=== PATIENT | female | born 1940 | race Caucasian/White ===

== ENCOUNTER 2016-02-26 06:44 | Observation (INO) | payer OTHER, MEDICARE ==
[2016-02-24 11:19] LABS: ANION GAP 11 mEq/L (8-16); CALCIUM 10.5 mg/dL (8.5-10.4); CARBON DIOXIDE 29 mEq/l (22-31); CHLORIDE 102 mEq/L (97-110); CREATININE 0.8 mg/dL (0.6-1.0); GLOMERULAR FILTRATION RATE > 60; GLUCOSE 98 mg/dL (70-100); POTASSIUM 4.2 mEq/L (3.5-5.2); SODIUM 142 mEq/L (134-144)
--- NOTE | 2016-02-24 17:41 | GHP ---
[f rep st] HISTORY AND PHYSICAL DATE OF ADMISSION: 02/26/2016 This is for upcoming surgery, date of admission 02/26/2016. HISTORY OF PRESENT ILLNESS: The patient comes to our office to follow up on her recent right breast excisional biopsy as well as talk about her elevated calcium. She has had elevated calcium a couple times over the past 6 months as well as a recent nuclear medicine scan done at [facility] which showed a suspect left midgland parathyroid adenoma. Her calcium was recently 11.8. ALLERGIES: Sulfa. PAST SURGICAL HISTORY: Tonsillectomy/adenoidectomy, cataract surgery, recent right breast skin biops y, knee replacement. MEDICATIONS: 1. Advair. 2. ProAir. 3. Spiriva. 4. Celebrex. 5. Triamterene/hydrochlorothiazide. 6. Gemfibrozil. 7. Delzicol. PAST MEDICAL HISTORY: Asthma, hyperlipidemia, COPD, history of breast cancer, hypercalcemia, ulcerat vikas colitis. SOCIAL HISTORY: Patient is , never a smoker according to the chart. REVIEW OF SYSTEMS: She had a negative 10-point review of systems. PHYSICAL EXAM: GENERAL: Patient is a pleasant female in no apparent distress who is using oxygen. HEAD AND NECK: Normocephalic and atraumatic. CHEST: CTA bilaterally. HEART: Regular rhythm and ra te. BREASTS: Exam demonstrates a right breast incision that is well healed. ABDOMEN: Soft and non tender. EXTREMITIES: No lower extremity edema. DIAGNOSTIC STUDIES: Laboratory studies and the recent nuclear medicine scan were reviewed. IMPRESSION: Hypercalcemia with possible parathyroid adenoma, left side. RECOMMENDATION: Parathyroidectomy was discussed with the patient in detail including the risks of ne rve injury resulting in hoarseness, dysphagia, injury causing neck hematoma requiring more surgery, i nfection were all discussed with the patient in detail and the patient elected to proceed with [facility] surgery for February 26, 2016. The patient has received clearance from jess Rios pulmonologradha de la garza in [place]. /[id number]/MODL
[2016-02-26] MEDS ORDERED: LIDOCAINE 1% 5 ML SDV ONE (07:05)
[2016-02-26] MEDS ORDERED: LR 1,000 ML IV ONE (07:27)
[2016-02-26] MEDS ORDERED: LIDOCAINE 1% 5 ML SDV ID PRN (07:27)
[2016-02-26] MEDS ORDERED: BUPIVACAINE/EPI 0.5% 30 ML SDV ONE (07:51)
[2016-02-26] MEDS ORDERED: THROMBIN (RECOMBINANT) 5,000 UNIT VIAL TP ONE (07:51)
[2016-02-26] MEDS ORDERED: LIDOCAINE 2% 100 MG/5 ML SYR IVP ONE (07:58)
[2016-02-26] MEDS ORDERED: fentaNYL 250 MCG/5 ML INJ ONE (07:58)
[2016-02-26] MEDS ORDERED: ROCURONIUM 50 MG/5 ML VIAL ONE (07:58)
[2016-02-26] MEDS ORDERED: DEXAMETHASONE 4 MG/ML VIAL ONE (07:58)
[2016-02-26] MEDS ORDERED: ONDANSETRON 4 MG/2 ML VIAL ONE (07:58)
[2016-02-26] MEDS ORDERED: PROPOFOL 200 MG/20 ML VIAL ONE (07:59)
[2016-02-26] MEDS ORDERED: ceFAZolin 2 GM/DEXTROSE 100 ML IV ONE (08:00)
[2016-02-26] MEDS ORDERED: ACETAMINOPHEN 325 MG TAB PO PRN (08:31)
[2016-02-26] MEDS ORDERED: ONDANSETRON 4 MG/2 ML VIAL IVP PRN (08:31)
[2016-02-26] MEDS ORDERED: HYDROCODONE/APAP 5/325 TAB PO PRN (08:31)
[2016-02-26] MEDS ORDERED: OXYCODONE/APAP 5/325 TAB PO PRN (08:31)
[2016-02-26] MEDS ORDERED: MIDAZOLAM 2 MG/2 ML VIAL ONE (08:33)
[2016-02-26] MEDS ORDERED: ALBUTEROL 60 PUFFS/8 GM MDI IH PRN (08:33)
[2016-02-26] MEDS ORDERED: ALBUTEROL 3 ML DEYVIAL IH PRN (08:33)
[2016-02-26] MEDS ORDERED: D5W 1/2 NS W/ 20 KCl/L 1,000 ML IV SCH (08:45)
[2016-02-26] MEDS ORDERED: NON-FORMULARY NEW DRUG (Meloxicam [Mobic 15 Mg] 15 MG) PO SCH (09:00)
[2016-02-26] MEDS ORDERED: SUGAMMADEX SODIUM 200 MG/2 ML VIAL IVP ONE (09:52)
--- NOTE | 2016-02-26 10:07 | POSTOPPROG ---
Post Op Note Date of Operation: 02/26/16 Surgeon: Hans Chew Coil Winder Hand: Cristian Penaloza Anesthesiologist: Dr monet Anesthesia: GET(General Endotracheal) Pre-op Diagnosis: hyperparathyroidism/hypercalcemia Post-op Diagnosis: same Indication: hypercalcemia Procedure: parathyroidectomy Findings: left parathyroid adenoma Inf/Abcess present in the surg proc area at time of surgery?: No Depth: Deep Incisional (Fascial) EBL: Minimal Specimen(s): left parathyroid pole
[2016-02-26] MEDS ORDERED: fentaNYL 100 MCG/2 ML INJ ONE (10:38)
[2016-02-26] MEDS: FLUTICASONE/SALMETER 500/50MCG DISKUS IH SCH ×2 (12:04→22:12)
[2016-02-26] MEDS: Umeclidinium Brm/Vilanterol Tr [Anoro Ellipta 62.5-25 Mcg Inh] IH SCH (12:05)
[2016-02-26] MEDS: TRIAMTERENE/HCTZ 75/50 1 EACH TAB PO SCH (12:26)
[2016-02-26] MEDS: GEMFIBROZIL 600 MG TAB PO SCH ×2 (12:26→21:00)
[2016-02-26] MEDS: Mesalamine [Lialda] 4.8 GM PO SCH (12:26)
[2016-02-26] MEDS: HYDROmorphONE/DILAUDID 1 MG/ML SYR IVP PRN ×2 (12:48→16:21)
[2016-02-26] MEDS ORDERED: ASPIRIN 81 MG CHEWABLE TAB PO SCH (21:00)
[2016-02-27 08:23] VITALS: BP 106/75; PULSE 76; RESP 20; TEMP 98.7; O2SAT 94
--- NOTE | 2016-02-27 08:51 | SOAPPROG ---
SOAP Progress Note Assessment/Plan: Assessment: 75yo female s/p parathyroidectomy PE awake alert neck moderate ecchymosis, no significant edema chest CTA B/L Plan: d/c home, seen by Dr Samayoa 02/27/16 08:50 Objective: Vital Signs Temp Pulse Resp BP Pulse Ox 37.1 C 76 20 106/75 94 02/27/16 08:22 02/27/16 08:22 02/27/16 08:22 02/27/16 08:22 02/27/16 08:22 Laboratory Results 02/24/16 10:26 02/26/16 02/27/16 02/28/16 05:59 05:59 05:59 Intake Total 1810 Output Total 1200 Balance 610 ICD10 Worksheet Patient Problems: Problems Problem Status Diagnosed Hyperparathyroidism Acute - ICD10 Problem Qualifiers (1) Hyperparathyroidism
[2016-02-27] MEDS ORDERED: Meloxicam [Mobic 15 Mg] 15 MG PO SCH (09:00)
[2016-02-27] MEDS: FLUTICASONE/SALMETER 500/50MCG DISKUS IH SCH (09:53)
[2016-02-27] MEDS: GEMFIBROZIL 600 MG TAB PO SCH (09:53)
[2016-02-27] MEDS: TRIAMTERENE/HCTZ 75/50 1 EACH TAB PO SCH (09:54)
[2016-02-27] MEDS: Mesalamine [Lialda] 4.8 GM PO SCH (09:54)
[2016-02-27] MEDS: Umeclidinium Brm/Vilanterol Tr [Anoro Ellipta 62.5-25 Mcg Inh] IH SCH (09:54)
--- NOTE | 2016-02-28 17:43 | GOP ---
[f rep st] OPERATIVE REPORT DATE OF OPERATION: 02/26/2016 SURGEON: Hans Chew MD RIVER TESTER: TREVON Foy ANESTHESIOLOGIST: Dr. Seaman PREOPERATIVE DIAGNOSIS: Hyperparathyroidism. POSTOPERATIVE DIAGNOSIS: Hyperparathyroidism. PROCEDURE PERFORMED: Parathyroid exploration with removal of parathyroid adenoma. FINDINGS: Patient was found to have a large multilobulated parathyroid adenoma at the upper left brad e position. She had a PTH which dropped from 99 down to 37 after 10 minutes. She had several other normal parathyroid glands visualized. DESCRIPTION OF PROCEDURE: Patient taken to the operating room, where she received satisfactory gener al endotracheal anesthesia Dr. Seaman, placed in the supine position, and prepped and draped in the usual sterile fashion. She has a very short neck. A transverse cervical incision was made and carried through the platysma. Continual platysmal flaps were developed to the thyroid cartilage and to the sternal notch. Strap muscles were in th e midline and the neck was explored. The thyroid was quite low, almost behind the manubrium making e xposure and dissection somewhat difficult. Dissection began on the patient's left side. The lower parathyroid was identified. It appeared to b e normal. The top of the parathyroid was unclear. Examination was done on the right side where 2 pa rathyroid glands were identified, but both were small in size. Turning back to the left side, further dissection deeper above the recurrent laryngeal nerve identifi ed a multilobulated adenoma, which was dissected free. Hemostasis was obtained with mini clips. The entire nodule was removed and sent for frozen section and confirmed as consistent with a parathyroid adenoma. Hemostasis was assured. The wound was irrigated. Strap muscles were approximated in the midline with 3-0 Vicryl, as was the platysma and subcutaneous tissue. Layers were infiltrated with Marcaine and the skin was closed with 4-0 Monocryl subcuticular stitch. The PTH value was demonstrated to drop significantly, and the ruddy ent was taken to the recovery room in good condition. There were no complications. /[id number]/MODL
== END 2016-02-27 09:58 | disposition home or self-care (01) ==
LOC: F3E 06:44
PROVIDERS: ADMIT Surgery; ATTEND Surgery
PROC: 0GBR0ZZ Excision of Parathyroid Gland, Open Approach (ICD-10-PCS; principal; 2016-02-26 08:30)
DX: D35.1 Benign neoplasm of parathyroid gland (principal); E83.52 Hypercalcemia; Z96.659 Presence of unspecified artificial knee joint; J45.909 Unspecified asthma, uncomplicated; E78.5 Hyperlipidemia, unspecified; J44.9 Chronic obstructive pulmonary disease, unspecified; K51.90 Ulcerative colitis, unspecified, without complications
CPT/HCPCS: 60500; J0690; J1100; J1170; J2001; J2250; J2405; J2704; J3010

== ENCOUNTER → 2017-02-17 | Outpatient (CLI) | payer OTHER, MEDICARE | LOC: FIMAGING 11:56 | PROVIDERS: ATTEND Internal Medicine Endocrinology, Diabetes & Metabolism | DX: Z12.31 Encounter for screening mammogram for malignant neoplasm of breast (principal); Z85.3 Personal history of malignant neoplasm of breast | CPT/HCPCS: G0202 ==

== ENCOUNTER → 2017-02-21 | Outpatient (CLI) | payer OTHER, MEDICARE | LOC: FIMAGING 11:20 | PROVIDERS: ATTEND Family Medicine | DX: Z13.820 Encounter for screening for osteoporosis (principal); M81.0 Age-related osteoporosis without current pathological fracture ==

== ENCOUNTER → 2017-11-29 | Outpatient (CLI) | payer OTHER, MEDICARE | LOC: FIMAGING 14:36 | PROVIDERS: ATTEND Internal Medicine Endocrinology, Diabetes & Metabolism | DX: J44.9 Chronic obstructive pulmonary disease, unspecified (principal); Z99.81 Dependence on supplemental oxygen ==

== ENCOUNTER 2018-02-22 20:29 | Inpatient (IN) | payer OTHER, MEDICARE ==
--- NOTE | 2018-02-22 20:36 | EDPHY ---
H & P Time Seen by Provider: 02/22/18 20:29 HPI/ROS: CHIEF COMPLAINT: Chest pain HISTORY OF PRESENT ILLNESS: Patient is a 77-year-old female who presents emergency department chest pain starting at 5:30 p.m.. She describes a bandlike pain across her chest. It started to radiate to her back and shoulder blades. She described as moderate to severe. EMS arrived. The patient was treated with aspirin and nitroglycerin. That greatly improved her symptoms. She now feels much better. She reports her pain as 2/10. She has no significant shortness of breath. No nausea or vomiting. No diaphoresis. Patient has had no previous heart attack. REVIEW OF SYSTEMS: 10 systems were reveiwed and are negative with the exception of the elements mentioned in the history of present illness. Past Medical/Surgical History: Includes COPD, hyperlipidemia, asthma Past surgical history: Includes knee replacement, thyroid resection Social history: Patient has a previous history of smoking. She does not currently smoke now. Smoking Status: Former smoker Physical Exam: Vitals noted GENERAL: Well-appearing, in no acute distress, alert. HEENT: Eyes normal to inspection, normal pharynx, no signs of dehydration. NECK: Normal, supple. Thyroid surgical scar. RESPIRATORY: Clear to auscultation bilaterally, no rales, rhonchi or wheezing. CVS: Regular rate and rhythm, no rubs, murmurs, or gallops. Chest wall: No tenderness palpation ABDOMEN: Soft, nontender, nondistended, no organomegaly. BACK: Normal to inspection, no CVA tenderness. SKIN: Normal color, no rash, warm, dry. No pallor. EXTREMITIES: No pedal edema, no calf tenderness, no Homans sign or cords, no joint swelling. NEURO/PSYCH: Alert and oriented, normal mood and affect, normal motor sensory exam. No obvious cranial nerve deficit. Constitutional: Initial Vital Signs Temperature (C) 36.6 C 02/22/18 20:29 Heart Rate 85 02/22/18 20:29 Respiratory Rate 19 02/22/18 20:29 Blood Pressure 136/61 H 02/22/18 20:29 O2 Sat (%) 98 02/22/18 20:29 O2 Delivery Mode Nasal Cannula O2 (L/minute) 4 Allergies/Adverse Reactions: Sulfa (Sulfonamide Antibiotics) Allergy (Verified 02/26/16 23:22) Rash Home Medications: Medication Instructions Recorded Albuterol [Proventil Inhaler HFA 1 puffs IH DAILY PRN 02/19/16 (*)] Albuterol [Proventil Neb] 3 ml IH DAILY PRN 02/19/16 Aspirin [Aspirin 81mg (*)] 81 mg PO HS 02/19/16 Fluticasone/Salmeter 500/50Mcg 1 puffs IH BID 02/19/16 [Advair 500/50 (*)] Gemfibrozil [Lopid 600 MG (*)] 600 mg PO BID 02/19/16 Meloxicam [Mobic 15 mg] 15 mg PO DAILY 02/19/16 Mesalamine [Lialda] 4.8 gm PO DAILY 02/19/16 Umeclidinium Brm/Vilanterol Tr 1 each IH DAILY 02/19/16 [Anoro Ellipta 62.5-25 Mcg INH] Advair 500/50 (*) 02/22/18 Gabapentin 02/22/18 Medical Decision Making - Diagnostics Imaging Results: Imaging Impressions Chest X-Ray 02/22/18 20:31 Impression: Bibasilar atelectasis; otherwise negative. ED Course/Re-evaluation: In the emergency department I met EMS on arrival. I took report from the reconciliation analyst. The patient has been given fentanyl, aspirin and nitro. I reviewed the EKGs from EMS. Patient has noted ST elevation in V3 through V6 as well as III. On arrival patient states her chest pain was well controlled. Cardiac alert was called on EMS arrival @ 2028. STAT Pads were placed on the patient. Laboratory studies, EKG and chest x-ray were ordered. EKG: Sinus rhythm at 85. Normal axis. Normal intervals. ST elevation in I, avL, V2-V6. ST depression III. I discussed the findings with the patient. I discussed the plan. I answered all her questions. Chest x-ray: I reviewed the images at bedside. The patient has a normal sized mediastinum. 2100: The patient again developed some mild chest pain. Her blood pressure was stable. She is given sublingual nitroglycerin. Differential Diagnosis: My differential includes but is not limited to acute ST-elevation DC, ACS, pericarditis, myocarditis, pulmonary embolus, dissection, aneurysm Critical Care Time: The patient required 15 min of critical care time. This was exclusive of any unbundled procedure. This was due the patient's chest pain, abnormal EKG, consultation with Cardiology and admission. - Data Points Laboratory Results: Laboratory Results 02/22/18 20:30 02/22/18 02/22/18 02/22/18 20:30 20:30 20:30 WBC 11.79 10^3/uL H 10^3/uL (3.80-9.50) RBC 4.49 10^6/uL 10^6/uL (4.18-5.33) Hgb 13.3 g/dL g/dL (12.6-16.3) Hct 41.8 % % (38.0-47.0) MCV 93.1 fL fL (81.5-99.8) MCH 29.6 pg pg (27.9-34.1) MCHC 31.8 g/dL L g/dL (32.4-36.7) RDW 13.2 % % (11.5-15.2) Plt Count 190 10^3/uL 10^3/uL (150-400) MPV 11.1 fL fL (8.7-11.7) Neut % (Auto) 77.4 % H % (39.3-74.2) Lymph % (Auto) 12.1 % L % (15.0-45.0) [place] % (Auto) 8.8 % % (4.5-13.0) Eos % (Auto) 0.0 % L % (0.6-7.6) Baso % (Auto) 1.2 % % (0.3-1.7) Nucleat RBC Rel Count 0.0 % % (0.0-0.2) Absolute Neuts (auto) 9.12 10^3/uL H 10^3/uL (1.70-6.50) Absolute Lymphs (auto) 1.43 10^3/uL 10^3/uL (1.00-3.00) Absolute Monos (auto) 1.04 10^3/uL H 10^3/uL (0.30-0.80) Absolute Eos (auto) 0.00 10^3/uL L 10^3/uL (0.03-0.40) Absolute Basos (auto) 0.14 10^3/uL H 10^3/uL (0.02-0.10) Absolute Nucleated RBC 0.00 10^3/uL 10^3/uL (0-0.01) Immature Gran % 0.5 % % (0.0-1.1) Immature Gran # 0.06 10^3/uL 10^3/uL (0.00-0.10) PT 13.0 SEC SEC (12.0-15.0) INR 0.96 (0.83-1.16) APTT 25.0 SEC SEC (23.0-38.0) Sodium Pending Potassium Pending Chloride Pending Carbon Dioxide Pending Anion Gap Pending BUN Pending Creatinine Pending Estimated GFR Pending Glucose Pending Calcium Pending Total Bilirubin Pending Conjugated Bilirubin Pending Unconjugated Bilirubin Pending AST Pending ALT Pending Alkaline Phosphatase Pending Total Protein Pending Albumin Pending Lipase Pending Departure - Departure Disposition: [facility] Inpatient Acute Clinical Impression: ST elevation DC (STEMI) Qualifiers: Involved coronary artery: LAD coronary artery Qualified Code(s): I21.02 - ST elevation (STEMI) myocardial infarction involving left anterior descending coronary artery Condition: Good Referrals: Patient,NotPresent [Primary Care Provider] - As per Instructions
[2018-02-22 20:45] LABS: PLATELET COUNT 190 10^3/uL (150-400)
[2018-02-22 20:54] LABS: INR 0.96 (0.83-1.16)
[2018-02-22] MEDS ORDERED: fentaNYL 100 MCG/2 ML INJ ONE (20:56)
[2018-02-22] MEDS ORDERED: LIDOCAINE 1% 300 MG/30 ML SDV ONE (20:56)
[2018-02-22] MEDS ORDERED: IOPAMIDOL (ISOVUE-370) 150 ML BTL IV ONE ×2 (20:56→21:42)
[2018-02-22] MEDS ORDERED: MIDAZOLAM 2 MG/2 ML VIAL ONE (20:56)
[2018-02-22] MEDS ORDERED: NITROGLYCERIN 0.4 MG BTL SL ONE ×2 (20:58→20:59)
[2018-02-22] MEDS ORDERED: ATROPINE SULFATE 1 MG/10 ML SYR ONE (21:20)
[2018-02-22] MEDS ORDERED: EPINEPHrine 1 MG/10 ML SYR IVP ONE (21:20)
[2018-02-22] MEDS ORDERED: BIVALIRUDIN 250 MG/5 ML VIAL IV ONE (21:20)
[2018-02-22] MEDS ORDERED: NITROGLYCERIN 1,500 MCG/15 ML VIAL MISC ONE (21:57)
--- NOTE | 2018-02-22 21:57 | GHP ---
DATE OF TRANSFER: 02/22/2018 CARDIAC ALERT NOTE/ADMISSION NOTE: TIME: 9 p.m. HISTORY OF PRESENT ILLNESS: On-call tonight by the emergency department for a cardiac alert. Scotty de la garza is 77 years old. She has no prior cardiovascular history. She has longstanding ulcerative colitis , COPD related to longstanding tobacco abuse, who at 5 o'clock developed the acute onset of substerna l chest pressure radiating to her back. Pain increased in severity. She activated 9--. On arriva l by the paramedics, she was found to have a [address]-elevation in her anterolateral leads, and she wa s brought to the emergency department. She was having ongoing 3/10 to 4/10 discomfort, mostly radiat ing to her back on my arrival. She denied shortness of breath. She has had no PND, orthopnea. She has had no palpitations, syncope, or near syncope. Patient has had no hematemesis or melena. She heredia s otherwise been in relatively good health. PAST MEDICAL HISTORY: Significant for ulcerative colitis, COPD. CURRENT MEDICATIONS: Include gabapentin, Advair, mesalamine, meloxicam, Lopid, aspirin, albuterol. RISKS FOR HEART DISEASE: Include hyperlipidemia. GENERAL REVIEW OF SYSTEMS: Negative for fever, chills. She has had mild nausea with this. She has had no abdominal pain. She denies hematemesis, melena, or hemoptysis. She has had no dysuria. She has had no bruising or bleeding. She has had no rashes. Her shortness of breath has been stable on nebulizers. PHYSICAL EXAMINATION: VITAL SIGNS: On my arrival, blood pressure was 120/80. Her heart rate was 82 . GENERAL: This was a cushingoid female resting flat in bed. NECK: She had no JVP. CHEST: Decre ased breath sounds with occasional rhonchi, cleared with coughing. CARDIAC: Revealed a 3/6 systolic murmur along the right sternal border. She had no palpable lift. She had a regular rate and rhythm . She had an S4. ABDOMEN: Distended with good bowel sounds. EXTREMITIES: Free of edema. She had +2 femoral pulses, +2 radial pulses that were equal. She had dorsalis pedis pulses +1 bilaterally p alpable. SKIN: She had no rash. NEUROLOGIC: She was alert and oriented with normal mood and affec t. DATABASE: EKG showed sinus rhythm with acute anterolateral ST elevation. LABORATORY DATA: 1. Significant for a white count 11.79. Her hemoglobin was 13.3. Her crit is 41. Her serum sodium was 139 with a BUN of 25. Her creatinine is 0.8. Her initial troponin is 0.12. 2. AST is 31, ALT is 28. IMPRESSION: 77-year-old female currently hemodynamically stable with anterolateral ST elevation and chest pain syndrome consistent with acute myocardial infarction. Risks and benefits of cardiac sangeeta terization as an initial strategy with the potential intervention were discussed including potential need of bypass surgery. This was discussed with her and her . Will proceed. She has known a llergies to sulfa, which we will be mindful of. At this point, she is hemodynamically stable, Killip class 1, and should do well. Questions were answered with her and her family. Broad differential d iagnosis if need be post procedure. With systolic murmur, will evaluate the aortic valve and mitral valve at the time of the procedure. Considerations for echocardiography postprocedure. /[id number]/MODL
[2018-02-22] MEDS ORDERED: METOPROLOL TARTRATE 5 MG/5 ML INJ ONE (21:59)
[2018-02-22] MEDS ORDERED: CLOPIDOGREL BISULFATE 75 MG TAB ONE (22:09)
[2018-02-22] MEDS ORDERED: TEMAZEPAM 15 MG CAP PO PRN (22:11)
[2018-02-22] MEDS ORDERED: ONDANSETRON 4 MG/2 ML VIAL IVP PRN (22:11)
[2018-02-22] MEDS ORDERED: ATROPINE SULFATE 1 MG/10 ML SYR IVP PRN (22:11)
[2018-02-22] MEDS ORDERED: LORazepam 2 MG/ML INJ IVP PRN (22:11)
[2018-02-22] MEDS ORDERED: EPLERENONE 25 MG TAB PO SCH (22:15)
[2018-02-22] MEDS ORDERED: LISINOPRIL 5 MG TAB PO SCH (22:15)
[2018-02-22] MEDS ORDERED: FAMOTIDINE 20 MG/NACL/50 ML BAG IV ONE (22:30)
--- NOTE | 2018-02-22 23:11 | PDMN ---
Medical Necessity Medical necessity: Pt meets IP criteria as of 02/22/2018 per and ADAM M-230 ( Myocardial Infarction); est los > 2mn for ongoing tx and management of STEMI
[2018-02-23] MEDS ORDERED: CALCIUM CARBONATE 500 MG CHEWABLE TAB PO PRN (00:30)
[2018-02-23] MEDS ORDERED: ALBUTEROL 3 ML DEYVIAL IH PRN (00:30)
[2018-02-23] MEDS ORDERED: ALBUTEROL 60 PUFFS/8 GM MDI IH PRN (00:30)
[2018-02-23 06:00] LABS: PLATELET COUNT 168 10^3/uL (150-400)
[2018-02-23 06:39] LABS: CREATINE KINASE 1177 IU/L (0-156)
--- NOTE | 2018-02-23 07:34 | PDCARPN ---
Cardiology Progress Note Chief Complaint: CP Assessment/Plan: Assessment: STEMI s/p PCI Plan: 02/23/18 07:33 doing well BP low--hold BP meds OOB check eco continue plavix/ASA Subjective: stable Reviewed/Discussed With: multidisciplinary team Time Spent with Patient: greater than 25 minutes Time Spent with Patient: Greater than 25 minutes spent on this patients care, greater than 50% of time spent counseling, educating, and coordinating care regarding the above mentioned plan. Objective: Vital Signs (8 Hrs) Temp Pulse Resp BP Pulse Ox 02/23/18 06:00 70 21 H 87/56 L 98 02/23/18 05:30 36.9 C 70 21 H 94/51 L 96 02/23/18 04:00 69 22 H 92/53 L 94 02/23/18 03:00 67 17 96/56 L 93 02/23/18 02:30 64 21 H 94/50 L 98 02/23/18 02:00 64 21 H 93/64 L 98 02/23/18 01:45 64 21 H 92/54 L 98 02/23/18 01:20 66 21 H 92/54 L 95 02/23/18 01:15 66 21 H 96/57 L 95 02/23/18 01:10 66 21 H 87/62 L 95 02/23/18 01:05 66 21 H 79/55 L 95 02/23/18 01:00 65 21 H 97/61 L 96 02/23/18 00:15 66 24 H 102/62 96 02/23/18 00:00 65 19 107/93 H 98 02/22/18 23:54 104/51 L 02/22/18 23:45 64 20 104/51 L 100 Intake/Output (24 Hrs) 02/22/18 02/23/18 02/24/18 05:59 05:59 05:59 Intake Total 900 Output Total 500 Balance 400 Intake: Oral (ml) 100 IV Intake (ml) 800 Output: Urine (ml) 500 Bedpan 500 Other: Weight 82.5 kg Number of Voids Bedpan 3 Toilet 1 Result Diagrams: 02/23/18 05:36 02/23/18 05:36 Cardiac Labs: Cardiac Lab Results (72 Hrs) 02/23/18 05:36 CK-MB (CK-2) Fraction 140.00 H Troponin I 19.800 H - Physical Exam Constitutional: no apparent distress Eyes: PERRL Ears, Nose, Mouth, Throat: moist mucous membranes Cardiovascular: regular rate and rhythm Peripheral Pulses: 1+: femoral (R), femoral (L) Respiratory: clear to auscultate bilat Gastrointestinal: normoactive bowel sounds Genitourinary: no suprapubic tenderness Skin: no rashes Musculoskeletal: no muscular tenderness Neurologic: AAOx3 Psychiatric: cooperative ICD10 Worksheet Patient Problems: Problems Problem Status Onset ST elevation SC (STEMI) Acute Hyperparathyroidism Acute
--- NOTE | 2018-02-23 07:49 | CPIP ---
DATE OF PROCEDURE: 02/22/2018 INDICATIONS: Acute anterior wall myocardial infarction. PROCEDURE: 1. Left heart catheterization. 2. Coronary and ventricular angiography. 3. Percutaneous coronary intervention and stenting of the apical left anterior descending artery. PROCEDURE IN DETAIL: After obtaining informed consent in the emergency department, the patient was b rought emergently to the cardiac quality assurance/r&d lab technician. The right groin was sterilely prepped and draped and infi ltrated with 2% xylocaine. A 6-Malagasy sheath was inserted in the right femoral artery. Using a 6-Fr ench JL4 catheter, the left main coronary artery was selectively intubated. Coronary angiograms were performed. Using a 6-Malagasy JR4 catheter, the right coronary artery was selectively intubated. Cor onary angiogram was performed. Following completion of the diagnostic procedure, it was elected to p roceed with emergency PCI. For details of that procedure please see below. TECHNICAL DIFFICULTIES: None. COMPLICATIONS: None. FINDINGS: Left main coronary artery is unobstructed. The left anterior descending artery is a large vessel, which is 100% occluded in its apical portion. It is fairly tortuous proximally. The circum flex artery is quite large, giving rise to a large obtuse marginal and is codominant. The right davonte nary artery is codominant giving rise to the posterior descending and posterolateral branch. After reviewing diagnostic angiograms it was elected to proceed with emergency PCI. The patient was anticoagulated with Angiomax. Initially, the left main coronary artery was selectively intubated wit h a 6-Malagasy JL4 guiding catheter. Using a 0.014 Luge wire and then a 0.014 Kinetix wire, we were un able to negotiate severe tortuosity. The wires were withdrawn. The guiding catheter was withdrawn. We upsized to a 6-Malagasy EBU 3.75 guiding catheter. With a 0.014 Luge wire, we were able to get pas t the significant tortuosity of the mid LAD and cross the apical portion of the LAD. Initial inflati on was performed with a 2 mm balloon. Repeat angiogram showed a pseudolesion in its midportion with significant restriction in flow. It was elected to proceed with stenting. Prior to performing a phi nt, a 2.5 mm balloon was again used to pre-dilate the lesion. A 2.5 x 16 mm Synergy stent was placed at the apex. A second 2.5 x 15 mm stent was placed proximally and deployed using single inflation. Repeat angiograms revealed a significant pseudolesion. There was penetration of dye within the sten t across the lesion but not to the apex in light of the distal location. The patient became pain-uriah e, and the pseudolesion it was elected to stop. The wire was pulled back. She was administered intr acoronary nitroglycerin. Repeat angiograms revealed resolution of the mid pseudolesion. There was p enetration of dye into the stents, but not to the apex. It was elected to stop at this time with no significant reflow. Left ventricular angiography was performed which revealed LVEDP of 35 mmHg. The re was a large apical akinetic segment. CONCLUSIONS: Acute anterior wall myocardial infarction with apical occlusion of the LAD. PCI and st enting of the apical LAD with no reflow. The patient will be continued on dual antiplatelet therapy, aggressive REMIGIO inhibition, eplerenone will be begun. Beta cecile with aggressive management of isc hemic cardiomyopathy. Question of long-term or short-term anticoagulation will be discussed after ec hocardiography in the morning. She is pain free with stable hemodynamics at the time of this dictati on. She was administered 5 mg of metoprolol x3. She will be taken to the ICU for continued care wit h the sheath secured in place. It will be pulled manually at a later time. The patient will be cont inued on aggressive medical therapy with clinical followup. She is pain free and hemodynamically sta ble. /[id number]/MODL
[2018-02-23] MEDS ORDERED: CARVEDILOL 3.125 MG TAB PO SCH (08:00)
[2018-02-23] MEDS: CLOPIDOGREL BISULFATE 75 MG TAB PO SCH (08:28)
[2018-02-23] MEDS: ATORVASTATIN CALCIUM 40 MG TAB PO SCH (08:28)
[2018-02-23] MEDS: ASPIRIN EC 81 MG TAB PO SCH (08:28)
[2018-02-23] MEDS: GEMFIBROZIL 600 MG TAB PO SCH ×2 (08:45→21:06)
[2018-02-23 08:53] LABS: CREATINE KINASE 1188 IU/L (0-156)
[2018-02-23] MEDS: FLUTICASONE/SALMETER 500/50MCG DISKUS IH SCH ×2 (09:31→21:27)
[2018-02-23] MEDS: NON-FORMULARY NEW DRUG (Umeclidinium Brm/Vilanterol Tr [Anoro Ellipta 62.5-25 Mcg Inh] 1 E IH SCH (09:31)
--- NOTE | 2018-02-23 09:35 | ASMTCMCOM ---
CM Note CM Note Notes: Patient presented to ED with chest pain, found to have acute anterior myocardial infarction with apical occlusion of the LAD. Successful PCI and stenting in the labor specialist. Patient is normally independent and lives with . No therapies ordered. No dc needs anticipated. Case Management available if this changes. Current CM Discharge plan: [facility] Cardiology follow-up Date Signed: 02/23/2018 09:35 AM Electronically Signed By:Ksenia Angulo RN
--- NOTE | 2018-02-23 10:19 | ECHO ---
[email or web address] [address] [address] Main: [phone] Fax: Transthoracic Echocardiogram Name: KARAN ROMO MR#: [id number] Study Date: 02/23/2018 Study Time: 07:56 AM Date of : 1940 Age: 77 year(s) Height: 157.5 cm (62 in.) Weight: 81.65 kg (180 lb.) BSA: 1.83 m2 Gender: Female Examination: Echo with Definity Indication: lv recovery Image Quality: Adequate Contrast: 0.330 mg I.V. dose of Definity was administered to improve endocardial border definition. Requested by: Pierre Cyr BP: 101 mmHg/52 mmHg Heart Rate: Rhythm: Indication: lv recovery Procedure Staff Bioinformatics Research Technician: Janny Castellanos RD Reading Physician: Tylro Ballard MD Requesting Provider: Conclusions: Mildly reduced systolic LV function. EF is 45 %. The apical anterior, apical septal, apical inferior, apical lateral and apex wall segments are hypokinetic. Moderate mitral annular calcification. Mild mitral valve regurgitation is present. Moderate aortic cusp calcification is present. Moderate calcific aortic valve stenosis. Mild tricuspid regurgitation is present. Right ventricular systolic pressure measures 54mmHg. Measurements: Chambers Valvular Assessment AV/MV Valvular Assessment TV/PV Normal Normal Normal Name Value Range Name Value Range Name Value Range Ao Aura (MM): 3.2 cm (2.2 cm-3.7 AV Vmax: 3.57 m/s (1 m/s-1.7 TR Vmax: 3.31 mm/s ( - ) cm) m/s) TR PGmax: 44 mmHg ( - ) IVSd (2D): 1.1 cm (0.6 cm-1.1 AV maxP mmHg ( - ) syst. PAP: 54 mmHg ( - ) cm) AV meanP mmHg ( - ) PV Vmax: 1.28 m/s (0.6 m/s-0.9 LVDd (2D): 4.4 cm (3.9 cm-5.3 JENNIFER (VTI): 1.2 cm ( - ) m/s) cm) MV meanP mmHg ( - ) PV PGmax: 7 mmHg ( - ) LVDs (2D): 2.5 cm (2.1 cm-4 MV PHT: 0.109 s ( - ) cm) MVA (Vmax): 1.5 m/s ( - ) LVPWd (2D): 0.9 cm ( - ) MVA (PHT): 2.0 s ( - ) LVOTd 1.9 cm 1.9 cm mm LVEF (BP): 45 % (>=55 %) RVDd(2D): 3.2 cm (1.9 cm-3.8 cmmm) Patient: KARAN ROMO Study Date: 02/23/2018 Page 1 of 3 07:56 AM Continued Measurements: Chambers Valvular Assessment AV/MV Valvular Assessment TV/PV Name Value Name Value Name Value LADs: 3.8 cm MV VTI: 65.60 cm CVP (est.): 10 mmHg LADs Lon.3 cm LA Area: 21.1 cm2 LA Volume: 60 ml LA Volume Index: 32.8 ml/m2 TAPSE: 2.0 cm RA Area: 15.5 cm2 Findings: Left Ventricle: Normal size left ventricle. No LV hypertrophy. Mildly reduced systolic LV function. EF is 45 %. Ejection fraction may be overestimated due to hyperdynamic mid LV function. The apical anterior, apical septal, apical inferior, apical lateral and apex wall segments are hypokinetic. Diastolic function is indeterminate due to significant mitral annular calcification. No LV apical thrombus. Right Ventricle: Normal size right ventricle. Normal RV function. Left Atrium: The left atrium is mildly dilated. Right Atrium: The right atrium is normal in size. Mitral Valve: There is mild thickening of the mitral valve leaflets. Moderate mitral annular calcification. Mild mitral valve regurgitation is present. Mild to moderate mitral stenosis most likely due to heavy annular calcification. Aortic Valve: Aortic valve is not well visualized. Cannot rule out bicuspid aortic valve. Moderate aortic cusp calcification is present. Max velocity across the valve is 3.6m/s, 33/51 mmHg mean/max pressure gradients, estimated JENNIFER=1.2cm2 and NDSI = .42. There is no significant aortic valve regurgitation. Moderate calcific aortic valve stenosis. Tricuspid Valve: The tricuspid valve is normal in appearance and function. Mild tricuspid regurgitation is present. Right ventricular systolic pressure measures 54mmHg. The pulmonary artery pressure is moderately increased. Pulmonic Valve: Pulmonary valve not well visualized. Trivial pulmonic valve regurgitation. Aorta: Normal size aortic root measuring 3.2 cm. IVC: The IVC is normal sized. There is less than 50% respiratory excursion. (No Signature Object) Wall Motion Scores Patient: KARAN ROMO Study Date: 02/23/2018 Page 2 of 3 07:56 AM Patient: KARAN ROMO Study Date: 02/23/2018 Page 3 of 3 07:56 AM [id number]
[2018-02-23] MEDS ORDERED: NITROGLYCERIN 0.4 MG BTL SL ONE (10:48)
[2018-02-23] MEDS: NITROGLYCERIN 0.4 MG BTL SL PRN ×2 (10:51→18:41)
[2018-02-23] MEDS: NON-FORMULARY NEW DRUG (Meloxicam [Mobic 15 Mg] 15 MG) PO SCH (13:12)
[2018-02-23] MEDS: NON-FORMULARY NEW DRUG (Mesalamine [Lialda] 2.4 GM) PO SCH (13:12)
[2018-02-23 16:53] LABS: CREATINE KINASE 2045 IU/L (0-156)
[2018-02-23] MEDS: GABAPENTIN 100 MG CAP PO SCH (21:06)
[2018-02-24] MEDS: NON-FORMULARY NEW DRUG (Umeclidinium Brm/Vilanterol Tr [Anoro Ellipta 62.5-25 Mcg Inh] 1 E IH SCH (08:33)
[2018-02-24] MEDS: FLUTICASONE/SALMETER 500/50MCG DISKUS IH SCH ×2 (08:33→21:45)
--- NOTE | 2018-02-24 09:31 | SOAPPROG ---
RAMILA Progress Note Assessment/Plan: Assessment:1. cad..acute mi with stenting..melissa try to reinstitute BB and acei ...hopefully d/c in 11 or 2 days Plan:1. as ordered 02/24/18 09:31 Subjective: pt is feeling well... atypical cp ...b/p better today... Objective: Vital Signs Temp Pulse Resp BP Pulse Ox 36.9 C 83 22 H 119/68 93 02/24/18 07:31 02/24/18 08:34 02/24/18 08:34 02/24/18 07:31 02/24/18 08:34 Laboratory Results 02/23/18 05:36 02/23/18 05:36 02/23/18 02/24/18 02/25/18 05:59 05:59 05:59 Intake Total 900 1600 Output Total 500 625 Balance 400 975 PT 13.0 SEC (12.0-15.0) 02/22/18 20:30 INR 0.96 (0.83-1.16) 02/22/18 20:30 Physical Exam - Physical Exam Respiratory: lungs clear Cardiac/Chest: regular rate, rhythm, No edema, No gallop ICD10 Worksheet Patient Problems: Problems Problem Status Onset Chronic Disease Mgmt/Transitional Care Acute ST elevation [place] (STEMI) Acute Hyperparathyroidism Acute
[2018-02-24] MEDS: ATORVASTATIN CALCIUM 40 MG TAB PO SCH (10:09)
[2018-02-24] MEDS: LISINOPRIL 2.5 MG TAB PO SCH (10:09)
[2018-02-24] MEDS: ASPIRIN EC 81 MG TAB PO SCH (10:10)
[2018-02-24] MEDS: GEMFIBROZIL 600 MG TAB PO SCH ×2 (10:10→20:29)
[2018-02-24] MEDS: CLOPIDOGREL BISULFATE 75 MG TAB PO SCH (10:11)
[2018-02-24] MEDS: NON-FORMULARY NEW DRUG (Mesalamine [Lialda] 2.4 GM) PO SCH (10:13)
[2018-02-24] MEDS: CARVEDILOL 3.125 MG TAB PO SCH ×2 (10:14→17:19)
[2018-02-24] MEDS: NON-FORMULARY NEW DRUG (Meloxicam [Mobic 15 Mg] 15 MG) PO SCH (11:10)
--- NOTE | 2018-02-24 14:34 | CPEKG ---
Test Reason : OPEN Blood Pressure : / mmHG Vent. Rate : 085 BPM Atrial Rate : 085 BPM P-R Int : 165 ms QRS Dur : 105 ms QT Int : 398 ms P-R-T Axes : 028 -48 021 degrees QTc Int : 474 ms Sinus rhythm Anterolateral infarct, acute (LAD) Confirmed by Christine Ricketts ([id number]) on 02/24/2018 2:33:38 PM Referred By: Confirmed By:Christine Ricketts
[2018-02-24] MEDS: ACETAMINOPHEN 325 MG TAB PO PRN (17:18)
[2018-02-24] MEDS: GABAPENTIN 100 MG CAP PO SCH (20:29)
[2018-02-25] MEDS: ACETAMINOPHEN 325 MG TAB PO PRN (05:36)
[2018-02-25 08:18] VITALS: BP 122/71
--- NOTE | 2018-02-25 08:59 | CPEKG ---
Test Reason : OPEN Blood Pressure : / mmHG Vent. Rate : 075 BPM Atrial Rate : 076 BPM P-R Int : 166 ms QRS Dur : 114 ms QT Int : 416 ms P-R-T Axes : 054 -50 036 degrees QTc Int : 465 ms Sinus rhythm Incomplete right bundle branch block Probable anterolateral infarct, recent Confirmed by Jaziel Ojeda ([id number]) on 02/25/2018 8:59:03 AM Referred By: Confirmed By:Jaziel Ojeda
--- NOTE | 2018-02-25 09:05 | CPEKG ---
Test Reason : OPEN Blood Pressure : / mmHG Vent. Rate : 073 BPM Atrial Rate : 074 BPM P-R Int : 167 ms QRS Dur : 113 ms QT Int : 432 ms P-R-T Axes : 041 -53 036 degrees QTc Int : 476 ms Sinus rhythm Incomplete right bundle branch block Inferior infarct, old Lateral infarct, recent Anterior infarct, acute (LAD) Confirmed by Jaziel Ojeda ([id number]) on 02/25/2018 9:04:30 AM Referred By: Confirmed By:Jaziel Ojeda
--- NOTE | 2018-02-25 09:06 | CPEKG ---
Test Reason : OPEN Blood Pressure : / mmHG Vent. Rate : 074 BPM Atrial Rate : 079 BPM P-R Int : 099 ms QRS Dur : 119 ms QT Int : 384 ms P-R-T Axes : 020 -49 056 degrees QTc Int : 426 ms Sinus rhythm Atrial premature complexes Short OR interval Incomplete right bundle branch block Inferior infarct, old Probable anterolateral infarct, acute Confirmed by Jaziel Ojeda ([id number]) on 02/25/2018 9:06:13 AM Referred By: Confirmed By:Jaziel Ojead
--- NOTE | 2018-02-25 09:08 | SOAPPROG ---
RAMILA Progress Note Assessment/Plan: Assessment:1. cad..acute mi with stenting.. Patient tolerated the addition of lisinopril 2.5 mg p. O. Q.day and Coreg 3.125 mg p.o. Twice daily. These will be added to her outpatient meds. She can be discharged home today on her meds as listed. She will follow up in our office in 2-3 weeks. Any provide would be appropriate. Referral talking cardiac rehab will be made. Plan:1. as ordered 02/24/18 09:31 02/25/18 09:08 Subjective: Allie is doing well today. She tolerated her medicines without hypotension she is walk. No cardiovascular complications. Discussed her discharge instructions with her. She is comfortable with going home we discussed adjust her new meds in the importance to taking her meds. We will refer to outpatient cardiac rehab if she chooses to go. Objective: Vital Signs Temp Pulse Resp BP Pulse Ox 37.1 C 82 18 122/71 H 94 02/25/18 08:00 02/25/18 08:00 02/25/18 08:00 02/25/18 08:00 02/25/18 08:00 Laboratory Results 02/23/18 05:36 02/23/18 05:36 02/24/18 02/25/18 02/26/18 05:59 05:59 05:59 Intake Total 1600 1120 Output Total 625 Balance 975 1120 PT 13.0 SEC (12.0-15.0) 02/22/18 20:30 INR 0.96 (0.83-1.16) 02/22/18 20:30 Physical Exam - Physical Exam Respiratory: lungs clear Cardiac/Chest: regular rate, rhythm, No edema, No gallop ICD10 Worksheet Patient Problems: Problems Problem Status Onset Chronic Disease Mgmt/Transitional Care Acute ST elevation [place] (STEMI) Acute Hyperparathyroidism Acute
[2018-02-25] MEDS: NON-FORMULARY NEW DRUG (Umeclidinium Brm/Vilanterol Tr [Anoro Ellipta 62.5-25 Mcg Inh] 1 E IH SCH (09:23)
[2018-02-25] MEDS: FLUTICASONE/SALMETER 500/50MCG DISKUS IH SCH (09:23)
--- NOTE | 2018-02-25 09:52 | ASMTLACE ---
LACE Length of stay for Answers: 2 days current admission Acuity / Level of Answers: Yes Care: Did the patient have an inpatient admission? Comorbidities - select Answers: Chronic pulmonary disease all that apply Opioid dependence / Chronic pain Other Notes: HLD # of Emergency department Answers: 1-2 visits in the last 6 months Score: 13 Date Signed: 02/25/2018 09:51 AM Electronically Signed By:Bre Regalado RN
[2018-02-25] MEDS: ATORVASTATIN CALCIUM 40 MG TAB PO SCH (09:53)
[2018-02-25] MEDS: CLOPIDOGREL BISULFATE 75 MG TAB PO SCH (09:53)
[2018-02-25] MEDS: CARVEDILOL 3.125 MG TAB PO SCH (09:54)
[2018-02-25] MEDS: ASPIRIN EC 81 MG TAB PO SCH (09:54)
[2018-02-25] MEDS: LISINOPRIL 2.5 MG TAB PO SCH (09:54)
[2018-02-25] MEDS: NON-FORMULARY NEW DRUG (Mesalamine [Lialda] 2.4 GM) PO SCH (09:55)
[2018-02-25] MEDS: NON-FORMULARY NEW DRUG (Meloxicam [Mobic 15 Mg] 15 MG) PO SCH (09:56)
--- NOTE | 2018-02-25 09:56 | ASMTDCNOTE ---
Case Management Discharge Discharge Order Complete? Answers: Yes Patient to Obtain Answers: Independently Medications Transportation Arranged Answers: Family/Friends Family Notified Answers: Yes Discharge Comments Notes: Patient medically cleared by cardiology to discharge home. No needs, Out patient cardiac rehab ordered. Date Signed: 02/25/2018 09:56 AM Electronically Signed By:Bre Regalado RN
== END 2018-02-25 11:29 | disposition home or self-care (01) | DRG 247 ==
LOC: EDUNIT# → F2N 22:47 → OBSVTOIN 22:47 → F2W 02-23 17:29
PROVIDERS: ADMIT Internal Medicine Interventional Cardiology; ATTEND Internal Medicine Interventional Cardiology
DX: I21.02 ST elevation (STEMI) myocardial infarction involving left anterior descending coronary artery (principal); I25.10 Atherosclerotic heart disease of native coronary artery without angina pectoris; E78.5 Hyperlipidemia, unspecified; J44.9 Chronic obstructive pulmonary disease, unspecified; K51.90 Ulcerative colitis, unspecified, without complications; Z96.649 Presence of unspecified artificial hip joint; Z87.891 Personal history of nicotine dependence
CPT/HCPCS: 84484-ER; 97162-GP; C1725; C1769; C1874; C1887; C9606; J0461; J0583; J1644; J2250; J3010; J7613; Q9967

== ENCOUNTER → 2018-07-04 | Outpatient (CLI) | payer OTHER, MEDICARE | LOC: FIMAGING 10:57 | PROVIDERS: ATTEND Family Medicine | DX: Z12.31 Encounter for screening mammogram for malignant neoplasm of breast (principal); Z85.3 Personal history of malignant neoplasm of breast ==